=== PATIENT | male | born 1990 | race Two or more races ===

== ENCOUNTER 2017-10-16 14:24 | Emergency (ER) | payer MEDICAID ==
[~2017-10-16] VITALS: Ht 193 cm; Wt 99.8 kg
[2017-10-16 14:43] VITALS: BP 140/70
== END 2017-10-16 15:05 | disposition home or self-care (01) ==
LOC: ER 14:26
DX: J20.9 Acute bronchitis, unspecified (principal); J45.909 Unspecified asthma, uncomplicated; F19.10 Other psychoactive substance abuse, uncomplicated; Z98.890 Other specified postprocedural states
CPT/HCPCS: 99283; A4606; Z7610